=== PATIENT | female | born 1990 | race American Indian/Alaskan Native ===

== ENCOUNTER 2016-10-28 08:01 | Emergency (ER) | payer SELFPAY ==
[2016-10-28 09:55] LABS: Basophils % (Auto) 0.4 % (0.0-1.8); Eosinophils % (Auto) 2.6 % (0.0-4.3); Hematocrit 36.3 % (30.3-42.9); Mean Corpuscular HGB Conc 33 % (30-34); Mean Corpuscular Hemoglobin 27 pg (28-32); Mean Corpuscular Volume 83 fl (79-97); Platelet Count 276 K/mm3 (140-440); Red Blood Count 4.39 M/mm3 (3.65-5.03); Red Cell Distribution Width 15.1 % (13.2-15.2); White Blood Count 4.4 K/mm3 (4.5-11.0)
--- NOTE | 2016-10-28 18:33 | Ultrasound Report ---
FINAL REPORT PROCEDURE: US OB TRANSVAGINAL and transabdominal TECHNIQUE: Real-time transabdominal and transvaginal sonography of the uterus, placenta, amniotic fluid, adnexa, and fetus was performed with image documentation. Measurements were obtained to determine age/size. M-mode Doppler was used to document heartbeat. CPT 23937 and 03545 HISTORY: preg and vag bleed COMPARISON: No prior studies are available for comparison. FINDINGS: Uterus measures 8.6 x 3.7 x 5.7 centimeters. Endometrium measures 18 millimeters in thickness. No endometrial fluid is seen. There is a cystic structure in the lower uterine segment/cervix, with a mean diameter of 10.7 millimeters. This could be a gestational sac. There is a questionable yolk sac present. No pole is seen. If this is a gestational sac, mean sac diameter measures 10.7 millimeters, which would correlate to a gestational age of 5 weeks 6 days. There are 4 fibroids noted in the uterus. One is seen in the fundus, measuring 1.9 x 1.5 x 1.9 centimeters. A 2nd is also in the fundus, measuring 1.7 x 1.5 x 1.9 centimeters. A 3rd is in the fundus, measuring 2.8 x 2.3 x 3.1 centimeters. A 4th is in the anterior body, measuring 0.9 x 0.5 x 0.8 centimeters. Right Ovary: 1.9 centimeter complex cyst is present, without significant vascularity Left Ovary: 1.7 centimeter hyperechoic mass with acoustic enhancement, possibly a complex cyst or solid lesion. This may be a hemorrhagic cyst IMPRESSION: There is a possible gestational sac in the lower uterine segment/endocervical canal. No pole is seen. Differential diagnosis for this lesion includes a large nabothian cyst. Recommend sonographic follow-up. If this is not a gestational sac, cannot fully exclude ectopic based on these images. Complex bilateral ovarian cysts versus solid lesions. Recommend follow-up. Uterine fibroids PROCEDURE: TECHNIQUE: HISTORY: COMPARISON: FINDINGS: IMPRESSION:
[2016-10-28 20:14] VITALS: BP 116/71
[2016-10-28] MEDS ORDERED: TYLENOL PO ONE (21:02)
--- NOTE | 2016-10-28 21:06 | Emergency Department Report ---
ED Female HPI - General Chief complaint: Vaginal Bleeding Stated complaint: 5WKS/VAGINAL BLEEDING Time Seen by Provider: 10/28/16 20:26 Source: patient Mode of arrival: Ambulatory Limitations: No Limitations - History of Present Illness Initial comments: 25-year-old female with no significant past medical history presents to the hospital complains of and vaginal bleeding. Patient states she is approximate 5 weeks , no care, and no primary [employer]. This is her second and she had an with her first and does not have any children. This morning patient started to have just a little bit of bleeding and suprapubic intermittent cramping that is mild at this time. Patient has only needed to use one pad per day and states that bleeding has decreased. - Related Data Home Medications Medication Instructions Recorded Confirmed Last Taken No Known Home Medications [No 10/28/16 10/28/16 Unknown Reported Home Medications] Allergies Allergy/AdvReac Type Severity Reaction Status Date / Time No Known Allergies Allergy Unverified 10/28/16 09:18 ED Review of Systems ROS: Stated complaint: 5WKS/VAGINAL BLEEDING Other details as noted in HPI Comment: All other systems reviewed and negative Other: Constitutional: No fevers chills Eyes: No eye pain visual changes ENT: No ear pain or throat pain Neck: Denies pain Respiratory: Denies cough wheezing shortness of breath Cardiovascular: Denies chest pain, palpitations, syncope GI: Denies nausea, vomiting, diarrhea, constipation : Denies dysuria Musculoskeletal: Denies back pain Skin: Denies rash, lesions, erythema Neurologic: Denies headache, numbness, weakness Psychiatric: Denies suicidal ideation, hallucinations ED Past Medical Hx - Medications Home Medications: Home Medications Medication Instructions Recorded Confirmed Last Taken Type No Known Home Medications [No 10/28/16 10/28/16 Unknown History Reported Home Medications] ED Physical Exam - General Limitations: No Limitations - Other Other exam information: General: No limitations, patient is alert in no acute distress Head exam: Atraumatic, normocephalic Eyes exam: Normal appearance ENT: Moist mucous membrane, normal oropharynx Neck exam: Normal inspection, full range of motion Respiratory exam: Clear to auscultation bilateral, no wheezes, rales, crackles Cardiovascular: Normal rate and rhythm, normal heart sounds Abdomen: Soft, nondistended, and mild suprapubic tenderness, with normal bowel sounds, no rebound, or guarding Extremity: Full range of motion normal inspection no deformity Back: Normal Inspection, full range of motion, no tenderness Neurologic: Alert, oriented x3, cranial nerves intact, no motor or sensory deficit Psychiatric: normal affect, normal mood Skin: Warm, dry, intact ED Course Vital Signs 10/28/16 10/28/16 10/28/16 09:12 20:13 20:14 Temperature 98.6 F Pulse Rate 67 73 Respiratory 18 12 12 Rate Blood Pressure 111/75 Blood Pressure 116/71 [Left] O2 Sat by Pulse 100 100 100 Oximetry - Reevaluation(s) Reevaluation #1: 10/28/16 21:04 tylenol ordered ED Medical Decision Making - Lab Data Result diagrams: 10/28/16 09:36 Lab Results 10/28/16 10/28/16 10/28/16 Range/Units 09:36 09:36 09:36 WBC 4.4 L (4.5-11.0) K/mm3 RBC 4.39 (3.65-5.03) M/mm3 Hgb 12.0 (10.1-14.3) gm/dl Hct 36.3 (30.3-42.9) % MCV 83 (79-97) fl MCH 27 L (28-32) pg MCHC 33 (30-34) % RDW 15.1 (13.2-15.2) % Plt Count 276 (140-440) K/mm3 Lymph % (Auto) 38.2 H (13.4-35.0) % [place] % (Auto) 12.7 H (0.0-7.3) % Eos % (Auto) 2.6 (0.0-4.3) % Baso % (Auto) 0.4 (0.0-1.8) % Lymph # 1.7 (1.2-5.4) K/mm3 [place] # 0.6 (0.0-0.8) K/mm3 Eos # 0.1 (0.0-0.4) K/mm3 Baso # 0.0 (0.0-0.1) K/mm3 Seg Neutrophils % 46.1 (40.0-70.0) % Seg Neutrophils # 2.1 (1.8-7.7) K/mm3 HCG, Quant 188.6 H (0-4) mIU/mL Blood Type O POSITIVE ZOILA Antibody Screen Negative - Radiology Data Radiology results: report reviewed (transvaginal/transabdominal ultrasound: Possible gestational sac in the lower uterine segment or endocervical canal. No pole at this time. Differential includes a large nabothian cyst. Complex bilateral ovarian cyst versus solid lesions follow-up recommended. Uterine fibroid) - Medical Decision Making Patient's beta hCG is only 188 is possible the patient is having a miscarriage however, I explained the importance of repeat hCG testing and follow-up ultrasound as an outpatient. Patient encouraged to return here if no primary [employer]ER doctor. Provide a copy of ultrasound report in case she decides to go to another facility. - Differential Diagnosis ectopic, miscarriage, early , fibroids Critical Care Time: No Critical care attestation.: If time is entered above; I have spent that time in minutes in the direct care of this critically ill patient, excluding procedure time. ED Disposition Clinical Impression: Vaginal bleeding, Early stage of , Ovarian cyst, Fibroids Disposition: DISCHARGED TO HOME OR SELFCARE Is pt being admited?: No Does the pt Need Aspirin: No Condition: Stable Instructions: Threatened Miscarriage (ED), Ectopic (ED), Ovarian Cyst (ED), Uterine Fibroids (ED) Additional Instructions: Follow-up in 2-3 days for repeat beta hCG testing. Beta hCG today is 188.6. If you're having a miscarriage this number should continue to drop. If you are still having a developing and this number should increase. We cannot rule out ectopic ( outside the uterus) until we see a confirmed sac and pole. You will also need outpatient follow-up for repeat ultrasound to reevaluate her if your bhct counts are increasing and to follow-up about your bilateral ovarian cysts. You may take [id number] vitamins and Tylenol as needed for pain. Referrals: YAMILA SUAREZ MD [Staff Physician] - 2-3 Days Time of Disposition: 21:10
== END 2016-10-28 21:33 | disposition home or self-care (01) ==
LOC: ED 08:01
DX: O20.9 Hemorrhage in early pregnancy, unspecified (principal); N83.209 Unspecified ovarian cyst, unspecified side; D25.9 Leiomyoma of uterus, unspecified; Z3A.01 Less than 8 weeks gestation of pregnancy
CPT/HCPCS: 36415; 76801; 76817; 84702; 85025; 86850; 86900; 86901

== ENCOUNTER 2016-10-31 09:57 | Emergency (ER) | payer SELFPAY ==
--- NOTE | 2016-10-31 10:26 | Emergency Department Report ---
Stated Complaint: 5WKS /F/U FOR VAG BLEEDING Time Seen by Provider: 10/31/16 10:15 - HPI History of Present Illness: could not be seen by obgyn here for follow up see us report 5 w preg w vag bleed ro ab - ROS Review of Systems: no n/v nad no abd pain non ill - Exam Vital Signs: vss MSE screening note: Focused history and physical exam performed. Due to findings the following was ordered: ED Disposition for MSE Condition: Stable
[2016-10-31 10:31] VITALS: BP 111/67
[2016-10-31 10:44] LABS: Hematocrit 36.4 % (30.3-42.9); Hemoglobin 11.8 gm/dl (10.1-14.3); Mean Corpuscular HGB Conc 32 % (30-34); Mean Corpuscular Hemoglobin 27 pg (28-32); Mean Corpuscular Volume 85 fl (79-97); Platelet Count 242 K/mm3 (140-440)
--- NOTE | 2016-10-31 12:20 | Emergency Department Report ---
ED Recheck HPI - General Chief Complaint: Recheck/Abnormal Lab/Rx Stated Complaint: 5WKS /F/U FOR VAG BLEEDING Time Seen by Provider: 10/31/16 11:58 Source: patient Mode of arrival: Ambulatory Limitations: No Limitations - History of Present Illness Initial Comments: This is a 25-year-old female well-nourished with nontoxic or ill in appearance that presents for a follow-up hCG testing. Patient was here 2 days ago on 10/28 and was seen by Dr. Clemons. Patient was here for vaginal bleeding and was diagnosed with 5 weeks . Patient was instructed to follow up in 2-3 days to repeat beta hCG testing. hCG testing on 10/28/16 was 188.6. Ultrasound was obtained with the results of possible gestational sac in the lower uterine segment/endocervical canal. No pole is seen. Differential diagnosis for this patient includes a large nabothian cyst. Patient denies any vaginal bleeding since was seen in the ED on Monday. Patient denies any discharge, nausea vomiting, chest pain, shortness of breath, headache, numbness or tingling to his extremities. Patient also stated as a appointment with a steam box tender but is unable to be seen for another couple weeks. MD Complaint: abnormal lab (hCG testing) -: Gradual, days(s) (2) Returns Today for: other (was instructed by Dr. Clemons for repeat hCG testing) Symptoms Since Prior Visit: no new symptoms, improved Context: planned re-check Associated Symptoms: none. denies: fever, chills, chest pain, shortness of breath, rash, malaise, nasuea, abdominal pain - Related Data Home Medications Medication Instructions Recorded Confirmed Last Taken No Known Home Medications [No 10/28/16 10/28/16 Unknown Reported Home Medications] Allergies Allergy/AdvReac Type Severity Reaction Status Date / Time No Known Allergies Allergy Verified 10/31/16 10:23 ED Review of Systems ROS: Stated complaint: 5WKS /F/U FOR VAG BLEEDING Other details as noted in HPI Constitutional: denies: chills, fever Eyes: denies: eye pain, eye discharge, vision change ENT: denies: ear pain, throat pain Respiratory: denies: cough, shortness of breath, wheezing Cardiovascular: denies: chest pain, palpitations Endocrine: no symptoms reported Gastrointestinal: denies: abdominal pain, nausea, diarrhea Genitourinary: denies: urgency, dysuria, discharge Musculoskeletal: denies: back pain, joint swelling, arthralgia Skin: denies: rash, lesions Neurological: denies: headache, weakness, paresthesias Psychiatric: denies: anxiety, depression Hematological/Lymphatic: denies: easy bleeding, easy bruising ED Past Medical Hx - Past Medical History Previous Medical History?: No - Surgical History Past Surgical History?: No - Social History Smoking Status: Never Smoker Substance Use Type: Alcohol - Medications Home Medications: Home Medications Medication Instructions Recorded Confirmed Last Taken Type No Known Home Medications [No 10/28/16 10/28/16 Unknown History Reported Home Medications] ED Physical Exam - General Limitations: No Limitations General appearance: alert, in no apparent distress - Head Head exam: Present: atraumatic, normocephalic - Eye Eye exam: Present: normal appearance - ENT ENT exam: Present: mucous membranes moist - Neck Neck exam: Present: normal inspection - Respiratory Respiratory exam: Present: normal lung sounds bilaterally. Absent: respiratory distress - Cardiovascular Cardiovascular Exam: Present: regular rate, normal rhythm. Absent: systolic murmur, diastolic murmur, rubs, gallop - GI/Abdominal GI/Abdominal exam: Present: soft, normal bowel sounds - Extremities Exam Extremities exam: Present: normal inspection - Back Exam Back exam: Present: normal inspection - Neurological Exam Neurological exam: Present: alert, oriented X3 - Psychiatric Psychiatric exam: Present: normal affect, normal mood - Skin Skin exam: Present: warm, dry, intact, normal color. Absent: rash ED Course Vital Signs 10/31/16 10:23 Temperature 98.1 F Pulse Rate 81 Respiratory 16 Rate Blood Pressure 111/67 O2 Sat by Pulse 100 Oximetry - Reevaluation(s) Reevaluation #1: 10/31/16 13:52 Dr. Chow has been consulted and spoken to patient. Agrees for a follow-up in 48 hours to [facility] for a repeat of hCG serum and possible ultrasound. ED Recheck MDM - Medical Decision Making ED course: 27 feet on the presents for a hCG recheck testing. 1- at the physical exam, the patient denies any vaginal bleeding since admission to the ED. Patient stated has a gynecology appointment but is unable to be seen until this coming Monday11/04/2016. 2- serum hCG testing has been obtained the ED with the results of 413.8. Dr. Chow is consulted and agrees for a follow-up to [facility] for a repeat hCG and possible ultrasound. 3- Dr. Clemons has informed the patient that we cannot rule out occult until we see a confirm sac and pole. Dr. Clemons notify the patient that she needs an outpatient follow-up for repeat ultrasound to reevaluate her if her hCG counts are increasing and to follow-up for bilateral ovarian cysts. 4- at the time of discharge the patient was instructed to follow-up with her steam box tender as soon as possible and patient was also given a steam box tender on- call for [facility] Dr. Martínez Patrick 5- at the time of discharge the patient does not seem toxic or ill in appearance. No signs of any shows noted. Patient agrees to the discharge plan and they will follow-up with steam box tender or Dr. Lord as soon as possible. 6- patient was instructed to return back to emergency room in 48 hours for a repeat hCG and possibility of an ultrasound. Critical care attestation.: If time is entered above; I have spent that time in minutes in the direct care of this critically ill patient, excluding procedure time. ED Disposition Clinical Impression: Abnormal human chorionic gonadotropin (hCG) High human chorionic gonadotropin (hCG) level Qualifiers: Trimester: unspecified trimester Qualified Code(s): Z34.90 - Encounter for supervision of normal , unspecified, unspecified trimester Disposition: DISCHARGED TO HOME OR SELFCARE Is pt being admited?: No Does the pt Need Aspirin: No Condition: Stable Instructions: (ED) Additional Instructions: Follow-up with your steam box tender/Dr. Lord as soon as possible. If symptoms worsen or bleeding has recurred for poor back to emergency room. Return to [facility] emergency department in 48 hours for a repeat of hCG and possibility of an ultrasound Referrals: [facility] [Outside] - 3-5 Days [facility] [Outside] - 3-5 Days PRIMARY CAREMD [Primary Care Provider] - 3-5 Days DONTAE LORD MD [Staff Physician] - 11/02/16 Forms: Work/School Release Form(ED)
== END 2016-10-31 14:23 | disposition home or self-care (01) ==
LOC: ED 09:57
DX: Z34.90 Encounter for supervision of normal pregnancy, unspecified, unspecified trimester (principal); Z3A.01 Less than 8 weeks gestation of pregnancy; O20.9 Hemorrhage in early pregnancy, unspecified
CPT/HCPCS: 36415; 84702; 84703; 85027; 99283